=== PATIENT | female | born 1975 | race Caucasian/White ===

== ENCOUNTER 2022-09-02 09:11 | Emergency (ER) | payer MEDICAID ==
[~2022-09-02] VITALS: Ht 157.5 cm; Wt 108.0 kg
[2022-09-02 09:39] VITALS: BP 167/88
[2022-09-02] MEDS ORDERED: KEPP500 MT ×3 (11:39→11:40)
== END 2022-09-02 11:46 | disposition home or self-care (01) ==
LOC: ER 10:41
DX: Z76.0 Encounter for issue of repeat prescription (principal); R56.9 Unspecified convulsions
CPT/HCPCS: 99283